=== PATIENT | female | born 1995 | race Caucasian/White ===

== ENCOUNTER 2018-09-09 14:28 | Emergency (ER) | payer MEDICAID ==
[~2018-09-09] VITALS: Ht 157.5 cm; Wt 61.2 kg
[2018-09-09 14:28] VITALS: BP_SYST 151
--- NOTE | 2018-09-09 14:30 | NUR ---
Patient to ER bed 8 to gown for evaluation. Side rails up.
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
--- NOTE | 2018-09-09 14:45 | NUR ---
ER at bedside examining patient.
[2018-09-09 15:06] VITALS: BP_SYST 151
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
== END 2018-09-09 15:06 | disposition home or self-care (01) ==
LOC: SED 14:28
DX: S16.1XXA Strain of muscle, fascia and tendon at neck level, initial encounter (principal); F41.9 Anxiety disorder, unspecified; V49.10XA Passenger injured in collision with unspecified motor vehicles in nontraffic accident, initial encounter; Y93.89 Activity, other specified; Y92.481 Parking lot as the place of occurrence of the external cause; Y99.8 Other external cause status
CPT/HCPCS: 99283